=== PATIENT | female | born 2000 | race Two or more races ===

== ENCOUNTER → 2025-05-17 | Outpatient (CLI) | payer OTHER ==
[2025-05-17 10:46] LABS: PLATELET COUNT, AUTOMATED 282 10^3/uL (150-450)
[2025-05-17 11:20] LABS: FREE T4 1.30 NG/DL (0.89-1.76)
[2025-05-17 11:50] LABS: HIV 1&2 SCREEN NEGATIVE (NEGATIVE)
[2025-05-17 11:59] LABS: HEPATITIS C VIRUS ABY INDEX < 0.02 INDEX (<0.8)
[2025-05-17 12:05] LABS: Trichomonas vaginalis (AMP) NOT DETECTED (NEGATIVE)
[2025-05-17 12:28] LABS: GC DNA AMPLIFICATION NEGATIVE (NEGATIVE)
== END ==
LOC: M PLALAB 09:12
PROVIDERS: ATTEND Nurse Practitioner Family
DX: Z34.80 Encounter for supervision of other normal pregnancy, unspecified trimester (principal)

== ENCOUNTER → 2025-07-12 | Outpatient (REF) | payer OTHER, MEDICAID | LOC: M SFHCWAGY 12:49 | PROVIDERS: ATTEND Obstetrics & Gynecology | DX: R82.90 Unspecified abnormal findings in urine (principal) ==

== ENCOUNTER → 2025-07-13 | Outpatient (CLI) | payer OTHER | LOC: M WHC 11:15 | PROVIDERS: ATTEND Nurse Practitioner Family | DX: Z34.80 Encounter for supervision of other normal pregnancy, unspecified trimester (principal) ==

== ENCOUNTER → 2025-08-08 | Outpatient (CLI) | payer OTHER | LOC: M WHC 07:11 | PROVIDERS: ATTEND Nurse Practitioner Family | DX: Z34.80 Encounter for supervision of other normal pregnancy, unspecified trimester (principal) ==

== ENCOUNTER → 2025-08-11 | Outpatient (CLI) | payer OTHER ==
[2025-08-11 14:35] LABS: PLATELET COUNT, AUTOMATED 265 10^3/uL (150-450)
[2025-08-11 15:38] LABS: HIV 1&2 SCREEN NEGATIVE (NEGATIVE)
[2025-08-11 15:46] LABS: HEPATITIS C VIRUS ABY INDEX < 0.02 INDEX (<0.8)
[2025-08-11 15:54] LABS: Trichomonas vaginalis (AMP) NOT DETECTED (NEGATIVE)
[2025-08-11 16:17] LABS: GC DNA AMPLIFICATION NEGATIVE (NEGATIVE)
== END ==
LOC: M PLALAB 08:52
PROVIDERS: ATTEND Advanced Practice Midwife
DX: Z34.02 Encounter for supervision of normal first pregnancy, second trimester (principal)

== ENCOUNTER → 2025-08-11 | Outpatient (REF) | payer OTHER | LOC: M PLALAB 08:04 | PROVIDERS: ATTEND Advanced Practice Midwife | DX: Z53.9 Procedure and treatment not carried out, unspecified reason (principal) ==

== ENCOUNTER → 2025-09-09 | Outpatient (CLI) | payer OTHER | LOC: M PLALAB 07:37 | PROVIDERS: ATTEND Advanced Practice Midwife | DX: Z34.02 Encounter for supervision of normal first pregnancy, second trimester (principal) ==

== ENCOUNTER → 2025-09-19 | Outpatient (CLI) | payer OTHER | LOC: M LAB 07:40 | PROVIDERS: ATTEND Advanced Practice Midwife | DX: O99.810 Abnormal glucose complicating pregnancy (principal) ==

== ENCOUNTER → 2025-09-20 | Outpatient (REF) | payer OTHER ==
[2025-09-20 14:29] LABS: FREE T4 1.1 NG/DL (0.89-1.76)
== END ==
LOC: M SFHCWAGY 13:23
PROVIDERS: ATTEND Student in an Organized Health Care Education/Training Program
DX: E03.9 Hypothyroidism, unspecified (principal)